=== PATIENT | male | born 1965 | race Caucasian/White ===

== ENCOUNTER 2019-03-03 06:12 | Emergency (ER) | payer MEDICAID ==
[~2019-03-03] VITALS: Ht 175.3 cm; Wt 105.0 kg
[2019-03-03 11:39] LABS: BASOPHILS % 0.7 % (0.0-2.0); EOSINOPHILS % 0.9 % (0.0-5.0); HEMATOCRIT. 41.8 % (42.0-52.0); HEMOGLOBIN. 14.2 g/dL (14.0-18.0); LYMPHOCYTES % 16.1 % (20.0-50.0); MEAN CORPUSCULAR HEMOGLOBIN 27.9 pg (28.0-32.0); MEAN CORPUSCULAR VOLUME 82.1 fL (80.0-94.0); MONOCYTES % 7.1 % (2.0-8.0); NEUTROPHILS % 75.2 % (40.0-76.0); PLATELET 157 x1000/uL (130-400); RED BLOOD CELL COUNT 5.09 mill/uL (4.7-6.1); RED CELL DISTRIBUTION WIDTH 13.2 % (11.6-14.6)
[2019-03-03 12:09] LABS: CHLORIDE 102 mEq/L (98-107)
[2019-03-03 12:16] LABS: ETHANOL BLOOD < 10 mg/dL
[2019-03-03 15:00] LABS: CLARITY URINE CLEAR (CLEAR); COLOR URINE YELLOW (YELLOW); KETONES URINE NEGATIVE (NEGATIVE); LEUKOCYTE ESTERASE URINE NEGATIVE (NEGATIVE); NITRITE URINE NEGATIVE (NEGATIVE); OCCULT BLOOD URINE TRACE (NEGATIVE); PROTEIN URINE NEGATIVE (NEGATIVE); SPECIFIC GRAVITY URINE 1.004 (1.005-1.030); UROBILINOGEN URINE 0.2 E.U./dL (0.2-1.0)
[2019-03-03 15:15] LABS: *AMPHETAMINES SCREEN URINE PRESUMTIVE POSITIVE (NEGATIVE)
[2019-03-03 15:16] LABS: *BARBITURATES SCREEN URINE NEGATIVE (NEGATIVE); *BENZODIAZEPINES SCREEN URINE NEGATIVE (NEGATIVE); *COCAINE SCREEN URINE PRESUMTIVE POSITIVE (NEGATIVE); METHADONE URINE SCREEN NEGATIVE (NEGATIVE); OPIATES URINE SCREEN NEGATIVE (NEGATIVE); PHENCYCLIDINE URINE SCREEN NEGATIVE (NEGATIVE)
[2019-03-03 15:17] LABS: CANNABINOID URINE SCREEN NEGATIVE (NEGATIVE)
[2019-03-03] MEDS ORDERED: ACETAMINOPHEN 325MG TABLET PO ONE (20:00)
[2019-03-03] MEDS: LEVETIRACETAM 500MG TABLET PO SCH (21:12)
[2019-03-04] MEDS: LEVETIRACETAM 500MG TABLET PO SCH ×3 (09:34→21:41)
[2019-03-04] MEDS ORDERED: POTASSIUM CHLORIDE 20MEQ TABLET SR PO ONE (22:45)
[2019-03-05 01:30] VITALS: BP 155/66
== END 2019-03-05 01:39 ==
LOC: ER 06:12
DX: R45.851 Suicidal ideations (principal); R07.89 Other chest pain; G40.909 Epilepsy, unspecified, not intractable, without status epilepticus; F20.9 Schizophrenia, unspecified; Z79.899 Other long term (current) drug therapy
CPT/HCPCS: 36415; 71045; 80053; 80178; 80305; 80320; 81003; 84484; 85025; 93005; 99284; G0480

== ENCOUNTER 2019-11-30 13:44 | Emergency (ER) | payer MEDICAID, OTHER ==
[~2019-11-30] VITALS: Ht 182.9 cm; Wt 140.0 kg
[2019-11-30 14:03] VITALS: BP 161/83
[2019-11-30] MEDS ORDERED: GABAPENTIN 400MG CAPSULE PO ONE (14:15)
== END 2019-11-30 14:20 | disposition home or self-care (01) ==
LOC: ER 13:44
DX: G89.29 Other chronic pain (principal); M54.5 Low back pain; I10 Essential (primary) hypertension; Z90.49 Acquired absence of other specified parts of digestive tract; Z88.6 Allergy status to analgesic agent
CPT/HCPCS: 99281; 99283